=== PATIENT | male | born 1970 | race Caucasian/White ===

== ENCOUNTER → 2021-05-07 | Outpatient (CLI) | payer OTHER | END | disposition home or self-care (01) | LOC: COVID19 15:18 | PROVIDERS: ATTEND Internal Medicine | DX: Z11.52 Encounter for screening for COVID-19 (principal) ==

== ENCOUNTER → 2022-01-11 | Outpatient (CLI) | payer OTHER ==
[2022-01-11 11:14] LABS: CREATININE 0.89 mg/dL (0.70-1.30)
== END | disposition home or self-care (01) ==
LOC: LAB 10:43
PROVIDERS: ATTEND Internal Medicine
DX: Z01.812 Encounter for preprocedural laboratory examination (principal); K40.20 Bilateral inguinal hernia, without obstruction or gangrene, not specified as recurrent

== ENCOUNTER → 2022-01-15 | Outpatient (CLI) | payer OTHER | END | disposition home or self-care (01) | LOC: CT 01-08 11:00 | PROVIDERS: ATTEND Surgery | DX: K40.20 Bilateral inguinal hernia, without obstruction or gangrene, not specified as recurrent (principal); N43.2 Other hydrocele; K76.0 Fatty (change of) liver, not elsewhere classified ==

== ENCOUNTER → 2022-02-18 | Day surgery (SDC) | payer OTHER ==
[2022-02-15 13:57] VITALS: BP 146/83
[~2022-02-18] VITALS: Ht 180.3 cm; Wt 122.5 kg
[~2022-02-18] MED LIST: COLACE100 MG PO; DAILY VALUE1 EACH PO; L-CARNITINE25 GM MC; LOSARTAN POTASS25 M1 PO; ONDANSETRON HYDR4 M1 PO; PERCOCET 5-3251 EACH PO; VITAMIN B1250 MCG PO; VITAMIN C250 M2 PO
[2022-02-18 09:40] VITALS: BP 143/96
[2022-02-18 13:14] VITALS: BP 139/82
[2022-02-18 13:29] VITALS: BP 150/88
[2022-02-18 13:50] VITALS: BP 140/79
[2022-02-18 14:14] VITALS: BP 145/96
== END | disposition home or self-care (01) ==
LOC: SDC 02-15 13:15
PROVIDERS: ATTEND Surgery
DX: K43.6 Other and unspecified ventral hernia with obstruction, without gangrene (principal); N43.3 Hydrocele, unspecified; K40.00 Bilateral inguinal hernia, with obstruction, without gangrene, not specified as recurrent; I10 Essential (primary) hypertension; Z79.899 Other long term (current) drug therapy